=== PATIENT | female | born 1985 | race Native Hawaiian/Other Pacific Islander ===

== ENCOUNTER 2017-02-17 12:57 | Outpatient (CLI) | payer OTHER | END 2017-02-17 19:46 | disposition home or self-care (01) | LOC: CT 12:57 | DX: R51 Headache (principal) ==

== ENCOUNTER 2023-01-12 10:11 | Outpatient (CLI) | payer OTHER | END 2023-01-12 19:01 | disposition home or self-care (01) | LOC: CT 10:11 | PROVIDERS: ATTEND Physician Assistant | DX: N20.0 Calculus of kidney (principal); Z80.9 Family history of malignant neoplasm, unspecified; Z12.31 Encounter for screening mammogram for malignant neoplasm of breast; R05.3 Chronic cough ==